=== PATIENT | male | born 1980 ===

== ENCOUNTER 2018-10-05 02:22 | Outpatient (CLI) | payer SELFPAY ==
[2018-10-05 08:58] LABS: HEMOGLOBIN A1C 4.9 % (4.5-6.2)
[2018-10-05 09:11] LABS: CHOL/HDL RATIO 4.39 (0.00-4.99)
== END 2018-10-05 23:59 | disposition home or self-care (01) ==
LOC: HW HEART 02:22
DX: Z13.6 Encounter for screening for cardiovascular disorders (principal)
CPT/HCPCS: 36415